=== PATIENT | female | born 1970 | race Caucasian/White ===

== ENCOUNTER 2017-04-05 16:55 | Emergency (ER) | payer OTHER ==
[~2017-04-05] VITALS: Ht 157.5 cm; Wt 81.5 kg
[~2017-04-05 16:55] MED LIST: ACET500T98 PO; ASPI-676 PO; ATOR20TA17 PO; CODE118S PO; IBUP200C PO; LEVO88TA36 PO; LOSA25TA2 PO; METO-448 PO; MTF1000T PO; NOV70303I SQ; ONDA4TAB35 PO; SAME MEDS; UDROBDM PO
[2017-04-05 16:57] VITALS: Ht 157.5 cm; Wt 81.5 kg
[2017-04-05] MEDS ORDERED: ONDANSETRON 4 MG INJ IV STA (19:53)
[2017-04-05] MEDS ORDERED: KETOROLAC 30 MG INJ IV STA (19:53)
[2017-04-05] MEDS ORDERED: SOD CHLORIDE 0.9% 1,000 ML IV STA (19:53)
[2017-04-05 20:22] LABS: BASOPHILS % 0.5 % (0.0-2.0); EOSINOPHILS # 0.2 10^3/ul (0.0-0.5); HEMATOCRIT 31.3 % (37.0-47.0); HEMOGLOBIN 9.2 g/dl (12.0-16.0); LYMPHOCYTES # 2.1 10^3/ul (0.8-2.9); LYMPHOCYTES % 35.6 % (15.0-51.0); MEAN CORPUSCULAR HEMOGLOBIN 20.9 pg (29.0-33.0); MEAN CORPUSCULAR HGB CONC 29.4 g/dl (32.0-37.0); MEAN PLATELET VOLUME 10.4 fl (7.4-10.4); MONOCYTE # 0.5 10^3/ul (0.3-0.9); MONOCYTES % 7.5 % (0.0-11.0); NEUTROPHIL # 3.2 10^3/ul (1.6-7.5); NEUTROPHILS % 53.1 % (39.0-77.0); PLATELET COUNT 319 10^3/UL (140-415); RED BLOOD COUNT 4.41 10^6/ul (4.20-5.40); RED CELL DISTRIBUTION WIDTH 18.6 % (11.5-14.5)
[2017-04-05 20:43] LABS: ALBUMIN 4.7 g/dl (3.3-4.9); ALBUMIN/GLOBULIN RATIO 1.2; BILIRUBIN,INDIRECT 0.2 mg/dl (0-1.1); BILIRUBIN,TOTAL 0.2 mg/dl (0.2-1.3); CALCIUM 9.5 mg/dl (8.4-10.2); CREATININE 0.57 mg/dl (0.44-1.00); TOTAL PROTEIN 8.6 g/dl (6.1-8.1)
[2017-04-05 20:46] LABS: ADD UMIC NO; UR ASCORBIC ACID NEGATIVE (NEGATIVE); UR BILIRUBIN (Dip) NEGATIVE (NEGATIVE); UR BLOOD (Dip) NEGATIVE (NEGATIVE); UR CLARITY CLEAR (CLEAR); UR COLOR STRAW (YELLOW); UR GLUCOSE (Dip) 3+ mg/dL (NEGATIVE); UR KETONES (Dip) NEGATIVE (NEGATIVE); UR LEUKOCYTE ESTERASE (Dip) NEGATIVE Leu/ul (NEGATIVE); UR NITRITE (Dip) NEGATIVE (NEGATIVE); UR SPECIFIC GRAVITY (Dip) 1.009 (1.003-1.030); UR TOTAL PROTEIN (Dip) NEGATIVE (NEGATIVE); UR UROBILINOGEN (Dip) NEGATIVE (NEGATIVE)
--- NOTE | 2017-04-05 22:58 | ERD ---
ER Documentation Chief Complaint Date/Time DATE: 04/05/17 TIME: 22:48 Chief Complaint R ABDOMINAL PAIN, NAUSEA SINCE LAST NIGHT,HX OF DM HPI This is a 46-year-old female with a past medical history of hypertension, hypothyroidism, hyperlipidemia, diabetes who is presenting with intermittent right upper quadrant discomfort. It started last night after eating. She does endorse some mild nausea but no vomiting. She does not endorse any fever or chills. She has no chest pain or trouble breathing. She has no other abdominal pain. She has not had any changes to bowel movements or urination. ROS All systems reviewed and are negative except as per history of present illness. Medications Home Meds Active Scripts Metformin* (Glucophage*) 1,000 Mg Tablet, 1000 MG PO BID, #60 TAB Prov:JJ PURVIS MD 11/05/15 Promethazine w/Codeine (Phenergan w/Codeine Syrup) 120 Ml Syrup, 5 ML PO QHS Y for COUGH, #120 ML 0 Refills Prov:BETO SINHA PA-C 07/23/15 Guaifenesin-Dextromethorphan* (Robitussin* DM) 100MG/10MG/5ML Syrup, 10 ML PO Q6H Y for COUGH, #240 ML 0 Refills Prov:BETO SINHA PA-C 07/23/15 Ibuprofen* (Ibuprofen*) 200 Mg Capsule, 200 MG PO Q6, #30 CAP 0 Refills Prov:BETO SINHA PA-C 07/23/15 Acetaminophen (Tylenol) 500 Mg Tab, 500 MG PO Q6, #30 TAB 0 Refills Prov:BETO SINHA PA-C 07/23/15 Ondansetron Hcl* (Zofran* ODT) 4 mg -ODT Tab.disper, 4 MG PO DAILY Y for NAUSEA AND/OR VOMITING, #10 TAB 0 Refills Prov:BETO SINHA PA-C 07/23/15 Reported Medications [Same Meds] No Conflict Check 08/05/12 Insulin Human Isophan/Regular (Novolin 70/30) 100 Unit/Ml Susp, 42 UNITS SQ AM 04/07/11 Metoprolol Tartrate* (Lopressor*) 25 Mg Tab, 25 MG PO DAILY 04/07/11 Losartan Potassium* (Cozaar*) 25 Mg Tablet, 25 MG PO DAILY 04/07/11 Aspirin (Emiliano Child) 81 Mg Chew, 81 MG PO DAILY 04/07/11 Atorvastatin (Lipitor) 20 Mg Tablet, 20 MG PO DAILY 04/07/11 Levothyroxine Sodium (Levothroid) 88 Mcg Tablet, 88 MCG PO DAILY 04/07/11 Metformin* (Glucophage*) 1,000 Mg Tablet, 1000 MG PO BID 04/07/11 Allergies Allergies: Coded Allergies: iodine (Verified Allergy, Unknown, 04/05/17) PMhx/Soc History of Surgery: Yes (left mastectomy) Anesthesia Reaction: No Hx Neurological Disorder: No Hx Respiratory Disorders: No Hx Cardiac Disorders: Yes (htn) Hx Psychiatric Problems: No Hx Miscellaneous Medical Probl: Yes (DM, THYROID, left breast Ca, high cholesterol) Hx Alcohol Use: No Hx Substance Use: No Hx Tobacco Use: No Smoking Status: Never smoker FmHx Family History: coronary disease, diabetes Physical Exam Vitals Vital Signs Date Time Temp Pulse Resp B/P Pulse Ox O2 Delivery O2 Flow Rate FiO2 04/05/17 16:57 98.6 98 19 139/65 99 Physical Exam Const: NAD, Well developed, Well Nourished Head: Atraumatic Eyes: Normal Conjunctiva ENT: Normal External Ears, Nose and Mouth. Neck: Full range of motion..~ No meningismus. Resp: Clear to auscultation bilaterally Cardio: Regular rate and rhythm, no murmurs Abd: Soft, non distended, mild RUQ and epigastric tenderness. Normal bowel sounds Skin: No petechiae or rashes Back: No midline or flank tenderness Ext: No cyanosis, or edema Neur: Awake and alert Psych: Normal Mood and Affect Result Diagram: 04/05/17200904/05/172009 Results 24 hrs Laboratory Tests Test 04/05/17 20:02 04/05/17 20:10 04/05/17 22:40 Bedside Glucose 264mg/dL 232mg/dL White Blood Count 6.010^3/ul Red Blood Count 4.4110^6/ul Hemoglobin 9.2g/dl Hematocrit 31.3% Mean Corpuscular Volume 71.0fl Mean Corpuscular Hemoglobin 20.9pg Mean Corpuscular Hemoglobin Concent 29.4g/dl Red Cell Distribution Width 18.6% Platelet Count 68843^3/UL Mean Platelet Volume 10.4fl Neutrophils % 53.1% Lymphocytes % 35.6% Monocytes % 7.5% Eosinophils % 3.0% Basophils % 0.5% Nucleated Red Blood Cells % 0.0/100WBC Neutrophils # 3.210^3/ul Lymphocytes # 2.110^3/ul Monocytes # 0.510^3/ul Eosinophils # 0.210^3/ul Basophils # 0.010^3/ul Nucleated Red Blood Cells # 0.010^3/ul Urine Color STRAW Urine Clarity CLEAR Urine pH 5.0 Urine Specific [place] 1.009 Urine Ketones NEGATIVEmg/dL Urine Nitrite NEGATIVEmg/dL Urine Bilirubin NEGATIVEmg/dL Urine Urobilinogen NEGATIVEmg/dL Urine Leukocyte Esterase NEGATIVELeu/ul Urine Hemoglobin NEGATIVEmg/dL Urine Glucose 3+mg/dL Urine Total Protein NEGATIVEmg/dl Sodium Level 138mmol/L Potassium Level 4.0mmol/L Chloride Level 99mmol/L Carbon Dioxide Level 28mmol/L Anion Gap 15 Blood Urea Nitrogen 11mg/dl Creatinine 0.57mg/dl Glucose Level 271mg/dl Calcium Level 9.5mg/dl Total Bilirubin 0.2mg/dl Direct Bilirubin 0.00mg/dl Indirect Bilirubin 0.2mg/dl Aspartate Amino Transf (AST/SGOT) 34IU/L Alanine Aminotransferase (ALT/SGPT) 47IU/L Alkaline Phosphatase 159IU/L Total Protein 8.6g/dl Albumin 4.7g/dl Globulin 3.90g/dl Albumin/Globulin Ratio 1.20 Lipase 124U/L Current Medications Medications (Trade) Dose Ordered Sig/Kassidy Route PRN Reason Start Time Stop Time Status Last Admin Dose Admin Sodium Chloride (NS) 1,000 ml @ 1,000 mls/hr Q1H STAT IV 04/05/17 19:53 04/05/17 20:52 DC 04/05/17 20:18 Ondansetron HCl (Zofran Inj) 4 mg ONCE STAT IV 04/05/17 19:53 04/05/17 19:55 DC 04/05/17 20:18 Ketorolac Tromethamine (Toradol) 30 mg ONCE STAT IV 04/05/17 19:53 04/05/17 19:55 DC 04/05/17 20:18 Procedures/[facility] The patient presented with a transient episode of abdominal pain that resolved on its own. The patient does have right upper quadrant tenderness. This could be associated with biliary colic. There could also be a hepatic etiology. Blood work will be obtained and reviewed. Labs The patient does not have leukocytosis or shift. She is afebrile, and I do not suspect a systemic infection. The patient's CMP does demonstrate a mildly elevated alk phos, but her LFTs are otherwise unremarkable. I do not see evidence of an obstructive pathology. I do not see evidence of true hepatitis. The patient's glucose is elevated, but there is no anion gap and I do not suspect DKA. Patient is no other electrolyte or metabolic abnormalities. She does have glucose in her urine but no ketones or hematuria or signs of infection. Treatment/Disposition Patient was given IV fluids, Toradol and Zofran with complete resolution of her symptoms. At this time, I feel that she is stable for discharge. While biliary colic may be a possibility, the patient does not have any findings consistent with cholecystitis. An outpatient ultrasound may be prudent, but it does not need to be emergently completed. The patient does need to follow-up with her primary care physician for further evaluation and management. She will be given precautions with which to return to the emergency department. Departure Diagnosis: Primary Impression: Abdominal pain Abdominal location: right upper quadrant Qualified Code: R10.11 - Right upper quadrant abdominal pain Condition: Stable TIRSO CALL MD Apr 05, 2017 22:58
[2017-04-05 23:13] VITALS: BP 128/65; PULSE 66; RESP 19
== END 2017-04-05 23:14 | disposition home or self-care (01) ==
LOC: E/R 16:55
DX: R10.11 Right upper quadrant pain (principal); R11.0 Nausea; E11.9 Type 2 diabetes mellitus without complications; I10 Essential (primary) hypertension; Z79.4 Long term (current) use of insulin; Z79.82 Long term (current) use of aspirin; Z79.84 Long term (current) use of oral hypoglycemic drugs; Z85.3 Personal history of malignant neoplasm of breast
CPT/HCPCS: 36415; 80053; 81003; 82962; 83690; 85025; 96374; 96375; J1885; J2405; J7030; Z7502

== ENCOUNTER 2018-01-22 12:24 | Emergency (ER) | END 2018-01-22 14:46 | disposition home or self-care (01) ==

== ENCOUNTER 2018-09-05 11:27 | Emergency (ER) | payer OTHER ==
[~2018-09-05] VITALS: Ht 160 cm; Wt 85.5 kg
[~2018-09-05 11:27] MED LIST changes: +ACET325T33 PO; +GUAI5SYR2 PO; +IBUP-1982 PO; -IBUP200C PO; -UDROBDM PO
[2018-09-05 11:35] VITALS: BP 137/74; PULSE 84; RESP 18; Ht 160 cm; Wt 85.5 kg
[2018-09-05] MEDS ORDERED: AMOX1TAB9 PO (12:58)
[2018-09-05] MEDS ORDERED: TYL500 PO (12:58)
[2018-09-05] MEDS ORDERED: FLUT16SP17 NASAL (12:58)
[2018-09-05] MEDS ORDERED: D-ME118S24 PO (13:00)
--- NOTE | 2018-09-05 13:00 | ERD ---
ER Documentation Chief Complaint Chief Complaint cough , fever , body ache x 3 days ROS All systems reviewed and are negative except as per history of present illness. Medications Home Meds Active Scripts D-Methorphan Hb/P-Epd HCl/Bpm (Prhggpthbr-Gropervaaxf-Ru Syr) 118 Ml Syrup, 5 ML PO Q4H PRN for COUGH for 7 Days, #1 BOTTLE Prov:BESS COWAN DO 09/05/18 Acetaminophen* (Tylenol*) 500 Mg Tab, 500 MG PO Q4H PRN for MILD PAIN LEVEL 1-3, #30 TAB Prov:BESS COWAN DO 09/05/18 Fluticasone Propionate* (Fluticasone Propionate* Nasal) 50 Mcg/[place] - 16 Gm [place].susp, 2 SPRAYS NASAL DAILY PRN for allergy, #1 BOTTLE TO EACH NOSTRIL Prov:BESS COWAN DO 09/05/18 Amoxicillin/Potassium Clav (Amox-Clav 500-125 mg Tablet) 500-125 mg Tab, 1 TAB PO Q8 for 7 Days, #21 TAB Prov:BESS COWAN DO 09/05/18 Acetaminophen* (Tylenol*) 325 Mg Tablet, 2 TAB PO Q8 PRN for PAIN AND OR ELEVATED TEMP, #20 TAB Prov:TIM PARIKH MD 01/22/18 Metformin* (Glucophage*) 1,000 Mg Tablet, 1000 MG PO BID, #60 TAB Prov:JJ PURVIS MD 11/05/15 Promethazine w/Codeine (Phenergan w/Codeine Syrup) 120 Ml Syrup, 5 ML PO QHS PRN for COUGH, #120 ML 0 Refills Prov:BETO SINHA PA-C 07/23/15 Guaifenesin-Dextromethorphan* (Robitussin* DM) 100MG/10MG/5ML Syrup, 10 ML PO Q6H PRN for COUGH, #240 ML 0 Refills Prov:BETO SINHA PA-C 07/23/15 Ibuprofen* (Ibuprofen*) 200 Mg Capsule, 200 MG PO Q6, #30 CAP 0 Refills Prov:BETO SINHA PA-C 07/23/15 Acetaminophen (Tylenol) 500 Mg Tab, 500 MG PO Q6, #30 TAB 0 Refills Prov:BETO SINHA PA-C 07/23/15 Ondansetron Hcl* (Zofran* ODT) 4 mg -ODT Tab.disper, 4 MG PO DAILY PRN for NAUS EA AND/OR VOMITING, #10 TAB 0 Refills Prov:BETO SINHA PA-C 07/23/15 Reported Medications [Same Meds] No Conflict Check 08/05/12 Insulin Human Isophan/Regular (Novolin 70/30) 100 Unit/Ml Susp, 42 UNITS SQ AM 04/07/11 Metoprolol Tartrate* (Lopressor*) 25 Mg Tab, 25 MG PO DAILY 04/07/11 Losartan Potassium* (Cozaar*) 25 Mg Tablet, 25 MG PO DAILY 04/07/11 Aspirin (Emiliano Child) 81 Mg Chew, 81 MG PO DAILY 04/07/11 Atorvastatin (Lipitor) 20 Mg Tablet, 20 MG PO DAILY 04/07/11 Levothyroxine Sodium (Levothroid) 88 Mcg Tablet, 88 MCG PO DAILY 04/07/11 Metformin* (Glucophage*) 1,000 Mg Tablet, 1000 MG PO BID 04/07/11 Allergies Allergies: Coded Allergies: iodine (Verified Allergy, Unknown, 04/05/17) PMhx/Soc History of Surgery: Yes (left mastectomy) Anesthesia Reaction: No Hx Neurological Disorder: No Hx Respiratory Disorders: No Hx Cardiac Disorders: Yes (htn) Hx Psychiatric Problems: No Hx Miscellaneous Medical Probl: Yes (DM, THYROID, left breast Ca, high cholesterol) Hx Alcohol Use: No Hx Substance Use: No Hx Tobacco Use: No Smoking Status: Never smoker Physical Exam Vitals Vital Signs Date Temp Pulse Resp B/P (MAP) Pulse Ox O2 O2 Flow FiO2 Time Delivery Rate 09/05/18 97.9 84 18 137/74 99 11:35 (95) Physical Exam Const: No acute distress Head: Atraumatic Eyes: Normal Conjunctiva ENT: Normal External Ears, Nose and Mouth. Neck: Full range of motion. No meningismus. Resp: Clear to auscultation bilaterally Cardio: Regular rate and rhythm, no murmurs Abd: Soft, non tender, non distended. Normal bowel sounds Skin: No petechiae or rashes Back: No midline or flank tenderness Ext: No cyanosis, or edema Neur: Awake and alert Psych: Normal Mood and Affect Departure Diagnosis: Primary Impression: URI (upper respiratory infection) URI type: unspecified URI Qualified Codes: J06.9 - Acute upper respiratory infection, unspecified Condition: Fair Patient Instructions: Preventing Common Respiratory Infections Referrals: [facility] PATRICIA Hagan (PCP) Additional Instructions: Call your primary care doctor TOMORROW for an appointment during the next 1-2 days.See the doctor sooner or return here if your condition worsens before your appointment time. Llame al doctor MAANA y glynn candice JOSE PARA DENTRO DE 1-2 BRODY.Dgale a la secretaria que nosotros le instruimos hacer esta jose.Avise o llame si pérez condicin se empeora antes de la jose. Regresa aqui si peor o no mejor. BESS COWAN DO Sep 05, 2018 13:00
== END 2018-09-05 14:10 | disposition home or self-care (01) ==
LOC: FTE 11:27
DX: J06.9 Acute upper respiratory infection, unspecified (principal); I10 Essential (primary) hypertension; E11.9 Type 2 diabetes mellitus without complications; Z79.4 Long term (current) use of insulin; Z79.82 Long term (current) use of aspirin; Z85.3 Personal history of malignant neoplasm of breast
CPT/HCPCS: 99283

== ENCOUNTER 2019-01-03 13:28 | Emergency (ER) | payer OTHER ==
[~2019-01-03] VITALS: Ht 167.6 cm; Wt 100.0 kg
[~2019-01-03 13:28] MED LIST changes: +AMOX1TAB9 PO; +D-ME118S24 PO; +FLUT16SP17 NASAL; +TYL500 PO
[2019-01-03 13:43] VITALS: BP 142/76; PULSE 88; RESP 20; Ht 167.6 cm; Wt 100.0 kg
[2019-01-03] MEDS ORDERED: KETOROLAC 60 MG INJ IM STA (14:04)
[2019-01-03] MEDS ORDERED: OXYC-279 PO (14:05)
[2019-01-03] MEDS ORDERED: IBUP-1542 PO (14:05)
--- NOTE | 2019-01-03 14:09 | ERD ---
ER Documentation Chief Complaint Chief Complaint LEFT LOWER TOOTHACHE X 1 DAY HPI 48-year-old female presents with complaint of tooth pain since yesterday. States that the pain is in the lower left part of her jaw. Says that she wanted to get to the dentist today but none of them are open. However she states that she will be able to get an to the dentist tomorrow. States that the pain right now is a 10 out of 10. States the pain was so bad last night she could not sleep. Says she is not driving home. She thinks that a crown fell off. Denies any fevers, chills, bleeding, discharge. ROS All systems reviewed and are negative except as per history of present illness. Medications Home Meds Active Scripts Oxycodone HCl/Acetaminophen (Percocet 5-325 mg Tablet) 1 Each Tablet, 1 EACH PO Q6, #10 TAB Prov:ANGIE BRAY 01/03/19 Ibuprofen* (Motrin*) 600 Mg Tab, 600 MG PO Q6, #20 TAB Prov:ANGIE BRAY 01/03/19 D-Methorphan Hb/P-Epd HCl/Bpm (Uxuuyhsvot-Iearmyyswkf-Tw Syr) 118 Ml Syrup, 5 ML PO Q4H PRN for COUGH for 7 Days, #1 BOTTLE Prov:BESS COWAN DO 09/05/18 Acetaminophen* (Tylenol*) 500 Mg Tab, 500 MG PO Q4H PRN for MILD PAIN LEVEL 1-3, #30 TAB Prov:BESS COWAN DO 09/05/18 Fluticasone Propionate* (Fluticasone Propionate* Nasal) 50 Mcg/[place] - 16 Gm [place].susp, 2 SPRAYS NASAL DAILY PRN for allergy, #1 BOTTLE TO EACH NOSTRIL Prov:BESS COWAN DO 09/05/18 Amoxicillin/Potassium Clav (Amox-Clav 500-125 mg Tablet) 500-125 mg Tab, 1 TAB PO Q8 for 7 Days, #21 TAB Prov:BESS COWAN DO 09/05/18 Acetaminophen* (Tylenol*) 325 Mg Tablet, 2 TAB PO Q8 PRN for PAIN AND OR ELEVATED TEMP, #20 TAB Prov:TIM PARIKH MD 01/22/18 Metformin* (Glucophage*) 1,000 Mg Tablet, 1000 MG PO BID, #60 TAB Prov:JJ PURVIS MD 11/05/15 Promethazine w/Codeine (Phenergan w/Codeine Syrup) 120 Ml Syrup, 5 ML PO QHS PRN for COUGH, #120 ML 0 Refills Prov:BETO SINHA PA-C 07/23/15 Guaifenesin-Dextromethorphan* (Robitussin* DM) 100MG/10MG/5ML Syrup, 10 ML PO Q6H PRN for COUGH, #240 ML 0 Refills Prov:BETO SINHA PA-C 07/23/15 Ibuprofen* (Ibuprofen*) 200 Mg Capsule, 200 MG PO Q6, #30 CAP 0 Refills Prov:BETO SINHA PA-C 07/23/15 Acetaminophen (Tylenol) 500 Mg Tab, 500 MG PO Q6, #30 TAB 0 Refills Prov:BETO SINHA PA-C 07/23/15 Ondansetron Hcl* (Zofran* ODT) 4 mg -ODT Tab.disper, 4 MG PO DAILY PRN for NAUSEA AND/OR VOMITING, #10 TAB 0 Refills Prov:BETO SINHA PA-C 07/23/15 Reported Medications [Same Meds] No Conflict Check 08/05/12 Insulin Human Isophan/Regular (Novolin 70/30) 100 Unit/Ml Susp, 42 UNITS SQ AM 04/07/11 Metoprolol Tartrate* (Lopressor*) 25 Mg Tab, 25 MG PO DAILY 04/07/11 Losartan Potassium* (Cozaar*) 25 Mg Tablet, 25 MG PO DAILY 04/07/11 Aspirin (Emiliano Child) 81 Mg Chew, 81 MG PO DAILY 04/07/11 Atorvastatin (Lipitor) 20 Mg Tablet, 20 MG PO DAILY 04/07/11 Levothyroxine Sodium (Levothroid) 88 Mcg Tablet, 88 MCG PO DAILY 04/07/11 Metformin* (Glucophage*) 1,000 Mg Tablet, 1000 MG PO BID 04/07/11 Allergies Allergies: Coded Allergies: iodine (Verified Allergy, Unknown, 04/05/17) PMhx/Soc History of Surgery: Yes (left mastectomy) Anesthesia Reaction: No Hx Neurological Disorder: No Hx Respiratory Disorders: No Hx Cardiac Disorders: Yes (htn) Hx Psychiatric Problems: No Hx Miscellaneous Medical Probl: Yes (DM, THYROID, left breast Ca, high cholesterol) Hx Alcohol Use: No Hx Substance Use: No Hx Tobacco Use: No FmHx Family History: No diabetes, No coronary disease, No other Physical Exam Vitals Vital Signs Date Temp Pulse Resp B/P (MAP) Pulse Ox O2 O2 Flow FiO2 Time Delivery Rate 01/03/19 99.0 88 20 142/76 99 13:43 (98) Physical Exam Const: No acute distress Head: Atraumatic Eyes: Normal Conjunctiva ENT: Normal External Ears, Nose and Mouth. No masses or lesions noted to the gum or tooth areas. Neck: Full range of motion. No meningismus. Resp: Clear to auscultation bilaterally Cardio: Regular rate and rhythm, no murmurs Abd: Soft, non tender, non distended. Normal bowel sounds Skin: No petechiae or rashes Back: No midline or flank tenderness Ext: No cyanosis, or edema Neur: Awake and alert Psych: Normal Mood and Affect Results 24 hrs Current Medications Medications Dose Sig/Kassidy Start Time Status Last (Trade) Ordered Route PRN Stop Time Admin Dose Reason Admin Ketorolac 60 mg ONCE STAT 01/03/19 DC Tromethamine IM 14:04 (Toradol) 01/03/19 14:05 Oxycodone/ 1 tab ONCE ONCE 01/03/19 Acetaminophen PO 14:30 (Percocet 01/03/19 14:31 (5/ 325)) Procedures/MDM MDM: I have low suspicion for epiglottitis, peritonsillar abscess, retropharyngeal abscess, [place] angina, bleeding dental socket, periodontal abscess, ulcerative gingivitis, dental trauma, or any other emergent condition. It appears that patient possibly had a crown that was dislodged. There was no bleeding or any lesions noted on exam. Patient given Toradol and 1 Percocet in the ER and discharged with ibuprofen and Percocet. At this time, patient is stable for discharge and outpatient management. I have instructed the patient to follow-up with his/her primary care physician in 1-2 days. I have discussed with the patient the possibility of needing to see a specialist for further workup and imaging studies if symptoms persist. I have instructed the patient to pro mptly return to the ER for any new or worsening symptoms including but not limited to increased pain, fever, nausea, vomiting, weakness or LOC. The patient and/or family expressed understanding of and agreement with this plan. All questions were answered. Home care instructions were provided. Communication with patient both during the exam and instructions for discharge were performed with using a coverer . Patient gave verbal confirmation to the practitioner, through the coverer, that they understood everythign that was being said to them. DISCLAIMER: Inadvertent spelling and grammatical errors are likely due to EHR/dictation software use and do not reflect on the overall quality of patient care. Also, please note that the electronic time recorded on this note does not necessarily reflect the actual time of the patient encounter. Departure Diagnosis: Primary Impression: Toothache Condition: Stable Patient Instructions: Dental Pain Additional Instructions: FOLLOW UP WITH YOUR PRIMARY CARE PHYSICIAN TOMORROW. Also follow-up with your dentist tomorrow. Return to this facility if you are not improving as expected. ANGIE BRAY Jan 03, 2019 14:09
[2019-01-03] MEDS ORDERED: OXYCODONE/ACETAMINOPHEN (5/325) TAB PO ONE (14:30)
== END 2019-01-03 14:36 | disposition home or self-care (01) ==
LOC: FTE 13:28
DX: K08.89 Other specified disorders of teeth and supporting structures (principal); I10 Essential (primary) hypertension; E11.9 Type 2 diabetes mellitus without complications; Z79.4 Long term (current) use of insulin; Z79.82 Long term (current) use of aspirin; Z85.3 Personal history of malignant neoplasm of breast
CPT/HCPCS: 81025; 96372; J1885; Z7502; Z7610

== ENCOUNTER 2019-03-26 08:04 | Emergency (ER) | payer OTHER ==
[~2019-03-26] VITALS: Ht 152.4 cm; Wt 83.9 kg
[~2019-03-26 08:04] MED LIST changes: +AMLO5TAB4 PO; +ASPI-817 PO; +ATOR40TA68 PO; +BENZ-6 PO; +CEPH-443 PO; +IBUP-1542 PO; +INSU100V3 IJ; +LEVO88TA3 PO; +LOSA100T15 PO; +METF100010 PO; +NPH,100V SQ; +OXYC-279 PO
[2019-03-26 08:08] VITALS: Ht 152.4 cm; Wt 83.9 kg
[2019-03-26 10:12] VITALS: BP 130/79; PULSE 89; RESP 16
== END 2019-03-26 10:53 | disposition home or self-care (01) ==
LOC: E/R 08:04
DX: N39.0 Urinary tract infection, site not specified (principal); J06.9 Acute upper respiratory infection, unspecified; I10 Essential (primary) hypertension; E11.9 Type 2 diabetes mellitus without complications; E03.9 Hypothyroidism, unspecified; Z85.3 Personal history of malignant neoplasm of breast; Z79.82 Long term (current) use of aspirin; Z79.4 Long term (current) use of insulin
CPT/HCPCS: 36415; 71045; 74176; 80053; 81001; 83690; 85025; Z7502